=== PATIENT | female | born 1975 ===

== ENCOUNTER 2020-01-10 09:05 | Outpatient (REF) | payer BC, SELFPAY ==
[2020-01-10 20:58] LABS: Anion Gap 9.3 mmol/L (3-11); BUN 12 mg/dL (7-18); CO2 25.7 mmol/L (21.0-32.0); CREATININE 0.69 mg/dL (0.55-1.02); Calcium 9.1 mg/dL (8.5-10.1); Chloride 103 mmol/L (98-107); Glucose 79 mg/dL (74-106); Potassium 4.2 mmol/L (3.5-5.1); Sodium 138 mmol/L (136-145)
[2020-01-10 21:18] LABS: Hemoglobin A1C 5.7 % (3.8-5.6)
== END 2020-01-10 09:25 ==
LOC: NCHCN 09:05
PROVIDERS: Visit Provider Family Medicine
DX: Z00.00 Encounter for general adult medical examination without abnormal findings (principal); Z13.1 Encounter for screening for diabetes mellitus
CPT/HCPCS: 80048; 83036

== ENCOUNTER 2020-02-03 12:43 | Outpatient (REF) | payer BC, SELFPAY | END 2020-02-03 13:03 | LOC: NCHCN 12:43 | PROVIDERS: Visit Provider Internal Medicine | DX: R30.0 Dysuria (principal) | CPT/HCPCS: 87086 ==

== ENCOUNTER 2020-04-22 17:18 | Outpatient (REF) | payer BC, SELFPAY ==
[2020-04-27 19:59] LABS: SARS-CoV-2 RNA Undetected (Undetected); SARS-CoV-2 Specimen Source Nasal
== END 2020-04-22 17:38 ==
LOC: NCHCN 17:18
PROVIDERS: Visit Provider Family Medicine
DX: J06.9 Acute upper respiratory infection, unspecified (principal)
CPT/HCPCS: U0003

== ENCOUNTER 2020-12-15 12:20 | Outpatient (REF) | payer BC, SELFPAY ==
[2020-12-15 15:13] LABS: HCT 39.8 % (36.0-46.0); HGB 13.2 g/dL (11.2-15.7); MCH 29.5 pg (27.0-33.0); MCHC 33.2 % (32.0-36.0); MPV 10.3 fL (8.0-11.0); Platelet Count 273 10^3/uL (130-400); RBC 4.47 10^6/uL (3.93-5.22); RDW 11.8 % (11.7-14.6); RDW-SD 37.9 fL; WBC 5.76 10^3/uL (4.4-10.8)
[2020-12-15 15:47] LABS: TSH 1.01 uIU/mL (0.36-3.74)
[2020-12-15 16:06] LABS: Hemoglobin A1C 5.6 % (<5.7)
[2020-12-16 20:29] LABS: Calculated LDL 85 mg/dL (<100); Cholesterol 157 mg/dL (<200); HDL Cholesterol 65 mg/dL (40-60); Triglyceride 36 mg/dL (<150)
== END 2020-12-15 12:21 | disposition home or self-care (01) ==
LOC: NCHCN 12:20
PROVIDERS: Visit Provider Family Medicine
DX: Z00.00 Encounter for general adult medical examination without abnormal findings (principal); Z13.29 Encounter for screening for other suspected endocrine disorder; Z13.220 Encounter for screening for lipoid disorders; Z13.1 Encounter for screening for diabetes mellitus; G47.00 Insomnia, unspecified; F41.8 Other specified anxiety disorders; R53.83 Other fatigue
CPT/HCPCS: 80061; 85027; 83036; 84443

== ENCOUNTER 2022-07-18 16:34 | Outpatient (REF) | payer BC, SELFPAY ==
[2022-07-18 21:28] LABS: HGB 12.8 g/dL (11.2-15.7); MCH 29.3 pg (27.0-33.0); MCHC 32.8 % (32.0-36.0); MCV 89 fL (80-95); MPV 10.3 fL (8.0-11.0); Platelet Count 336 10^3/uL (130-400); RBC 4.37 10^6/uL (3.93-5.22); RDW 12.1 % (11.7-14.6); RDW-SD 39.8 fL; WBC 6.44 10^3/uL (4.4-10.8)
[2022-07-18 21:44] LABS: Hemoglobin A1C 5.5 % (<5.7)
[2022-07-18 21:47] LABS: Anion Gap 7.5 mmol/L (3-11); BUN 13 mg/dL (7-18); CO2 28.5 mmol/L (21.0-32.0); CREATININE 0.8 mg/dL (0.55-1.02); Calcium 9.4 mg/dL (8.5-10.1); Chloride 104 mmol/L (98-107); Estimated GFR 92.54 (mL/min/1.73m2); Glucose 92 mg/dL (74-106); Potassium 3.8 mmol/L (3.5-5.1); Sodium 140 mmol/L (136-145); TSH 1.73 uIU/mL (0.36-3.74)
== END 2022-07-18 16:35 | disposition home or self-care (01) ==
LOC: NCHCN 16:34
PROVIDERS: Visit Provider Nurse Practitioner Family
DX: N93.9 Abnormal uterine and vaginal bleeding, unspecified (principal); Z13.1 Encounter for screening for diabetes mellitus
CPT/HCPCS: 80048; 85027; 83036; 84443

== ENCOUNTER 2023-05-10 16:23 | Outpatient (REF) | payer BC, SELFPAY ==
--- NOTE | 2023-05-10 15:30 | ENDOMET_PTH ---
PATIENT: Leslye Daily LOC: [facility] U#:[id number] AGE/SX: 48/F ROOM: RE05/10/[address]: Sugey Ramos : 1975 BED: DIS: 05/10/2023 SPEC #: [id number] RECD: 05/10/23 18:34 STATUS: ROB REQ #: [id number] ALCIDES: 05/10/23 15:[address]: Sugey Ramos DEPT: Surgical Specimen RECD BY: Chely Nickerson Tissues: 1 - ENDOMETRIUM BX/ROBLES Procedures: GROSS AND MICRO LEVEL 4 Comments: [id number]
== END 2023-05-10 16:24 | disposition home or self-care (01) ==
LOC: LBN 16:23
PROVIDERS: PCP Obstetrics & Gynecology Gynecology; Visit Provider Obstetrics & Gynecology Gynecology
DX: N93.9 Abnormal uterine and vaginal bleeding, unspecified (principal)
CPT/HCPCS: 88305

== ENCOUNTER 2023-09-29 14:14 | Outpatient (REF) | payer BC, SELFPAY ==
[2023-09-29 14:29] LABS: HCT 41.6 % (36.0-46.0); HGB 13.6 g/dL (11.2-15.7); MCH 28.8 pg (27.0-33.0); MCHC 32.7 % (32.0-36.0); MCV 88 fL (80-95); MPV 10.6 fL (8.0-11.0); Platelet Count 268 10^3/uL (130-400); RBC 4.72 10^6/uL (3.93-5.22); RDW 12.3 % (11.7-14.6); RDW-SD 39.8 fL; WBC 6.38 10^3/uL (4.4-10.8)
[2023-09-29 15:45] LABS: Ferritin 20 ng/mL (8-252)
== END 2023-09-29 14:15 | disposition home or self-care (01) ==
LOC: NCHCN 14:14
PROVIDERS: PCP Obstetrics & Gynecology Gynecology; Visit Provider Family Medicine
DX: R53.83 Other fatigue (principal); N93.8 Other specified abnormal uterine and vaginal bleeding
CPT/HCPCS: 85027; 82728

== ENCOUNTER 2023-10-02 14:48 | Outpatient (REF) | payer BC, SELFPAY ==
[2023-10-03 14:34] LABS: Helicobacter pylori Ag, Feces Positive (Negative)
== END 2023-10-02 14:49 | disposition home or self-care (01) ==
LOC: NCHCN 14:48
PROVIDERS: PCP Obstetrics & Gynecology Gynecology; Visit Provider Family Medicine
DX: R10.9 Unspecified abdominal pain (principal)
CPT/HCPCS: 87338

== ENCOUNTER 2023-10-25 10:08 | Outpatient (REF) | payer BC, SELFPAY ==
[2023-10-25 15:27] LABS: Vitamin D 25 Total 34.2 ng/mL (30-100)
[2023-10-25 15:29] LABS: ALT 26 U/L (14-59); AST 22 U/L (15-37); Albumin 3.9 g/dL (3.4-5.0); Alkaline Phosphatase 48 U/L (46-116); BUN 11 mg/dL (7-18); Bilirubin, Total 0.4 mg/dL (0.2-1.0); CREATININE 0.7 mg/dL (0.55-1.02); Calcium 8.9 mg/dL (8.5-10.1); Chloride 103 mmol/L (98-107); Estimated GFR 107.95 (mL/min/1.73m2); Glucose 103 mg/dL (74-106); Lipase 49 U/L (16-77); Sodium 136 mmol/L (136-145); TSH (W/Ref FT4) 0.94 uIU/mL (0.36-3.74); Total Protein 6.7 g/dL (6.4-8.2); Vitamin B12 375 pg/mL (193-986)
== END 2023-10-25 10:09 | disposition home or self-care (01) ==
LOC: NCHCN 10:08
PROVIDERS: PCP Obstetrics & Gynecology Gynecology; Visit Provider Family Medicine
DX: R10.11 Right upper quadrant pain (principal); R53.83 Other fatigue; E55.9 Vitamin D deficiency, unspecified
CPT/HCPCS: 80053; 82306; 83690; 82607; 84443

== ENCOUNTER 2023-12-01 13:24 | Outpatient (REF) | payer BC, SELFPAY ==
[2023-12-05 13:24] LABS: Helicobacter pylori Ag, Feces Negative (Negative)
== END 2023-12-01 13:25 | disposition home or self-care (01) ==
LOC: NCHCN 13:24
PROVIDERS: PCP Obstetrics & Gynecology Gynecology; Visit Provider Family Medicine
DX: R10.11 Right upper quadrant pain (principal); R53.83 Other fatigue; B96.81 Helicobacter pylori [H. pylori] as the cause of diseases classified elsewhere
CPT/HCPCS: 87338